=== PATIENT | female | born 1975 | race Caucasian/White ===

== ENCOUNTER → 2020-07-19 | Outpatient (CLI) | payer OTHER ==
[~2020-07-19] MED LIST: IBUP200T49 PO
== END | disposition home or self-care (01) ==
LOC: CFH 08:36
PROVIDERS: ATTEND Nurse Practitioner Family
DX: N60.11 Diffuse cystic mastopathy of right breast (principal); N63.0 Unspecified lump in unspecified breast
CPT/HCPCS: 76642; 77062; 77066; G0279